=== PATIENT | female | born 1970 | race African-American/Black ===

== ENCOUNTER → 2019-05-14 | Outpatient (CLI) | payer OTHER | LOC: YHH 15:35 ==

== ENCOUNTER → 2020-09-08 | Day surgery (SDC) | payer OTHER ==
--- OUTSIDE RECORDS SUMMARY | 2020-09-08 09:45 | XMS ---
:1970 Author Organization [facility] Support Name Relationship Address Phone JESSICA ZEPEDA FRIEND [address] [facility] [phone] [place] [address] UNEMPLOYED Unavailable [address] [facility] [phone] [place] [address] TACO OROZCO PA [address] [facility] [phone] [place] [address] UE Unavailable Unavailable Unavailable PAMISIS Matamoros MOTHER [address] [facility] [place] [address] Care Team Providers Name Role Phone [facility], [facility] Unavailable Unavailable Re-disclosure Warning The records that you are about to access may contain information from federally- assisted alcohol or drug abuse programs. If such information is present, then the following federally mandated warning applies: This information has been disclosed to you from records protected by federal confidentiality rules (42 CFR part 2). The federal rules prohibit you from making any further disclosure of this information unless further disclosure is expressly permitted by the written consent of the person to whom it pertains or as otherwise permitted by 42 CFR part 2. A general authorization for the release of medical or other information is NOT sufficient for this purpose. The Federal rules restrict any use of the information to criminally investigate or prosecute any alcohol or drug abuse patient.The records that you are about to access may contain highly sensitive health information, the redisclosure of which is protected by Article 27-F of the [place] State Public Health law. If you continue you may haveaccess to information: Regarding HIV / AIDS; Provided by facilities licensed or operated by the [facility] Office of Mental Health; or Provided by the [facility] Office for People With Developmental Disabilities. If such information is present, then the following [facility] mandated warning applies: This information has been disclosed to you from confidential records which are protected by state law. State law prohibits you from making any further disclosure of this information without the specific written consent of the person to whom it pertains, or as otherwise permitted by law. Any unauthorized further disclosure in violation of state law may result in a fine or group home sentence or both. A general authorization for the release of medical or other information is NOT sufficient authorization for further disclosure. Encounters Encounter Providers Location Date Problem Problem Problem Effective [facility] Data Code Name Description Dates Status Status Source (s) Description Description Outpatient Attender: 08/20 [facility] ([facility] 08:15 [place] :44 Care AM [facility]) EST Patient admitted. Outpatient Attender: [facility] 08/09/2020 11:27:35 [facility] ([facility] AM EST [facility] on) Patient admitted. Outpatient Attender: [facility] 06/14/2020 03:44:51 [facility] ([facility] PM EDT [facility] on) Patient admitted. Outpatient Attender: [facility] 04/10/2020 11:30:26 [facility] ([facility] AM EDT [facility]) Patient admitted. Outpatient Attender: [facility] 10/28/2019 11:56:12 [facility] ([facility] AM EST [facility]) Patient admitted. Insurance Providers Payer name Policy type Policy ID Covered Covered democrat's Policy P molly / Coverage democrat ID relationship to Jensen Inf ormation type jensen KESHA Lee 01 [id number] [facility] 1 [id number] PLANS
== END | disposition home or self-care (01) ==
LOC: JRADIR 09:42
PROVIDERS: ATTEND Internal Medicine Endocrinology, Diabetes & Metabolism
PROC: BG44ZZZ Ultrasonography of Thyroid Gland (ICD-10-PCS; principal; 2020-09-08)
DX: E04.1 Nontoxic single thyroid nodule (principal); Z53.20 Procedure and treatment not carried out because of patient's decision for unspecified reasons
CPT/HCPCS: 76942